=== PATIENT | female | born 1980 | race Hispanic/Latino ===

== ENCOUNTER 2018-03-16 13:33 | Emergency (ER) | payer BC, OTHER ==
[2018-03-16] MEDS ORDERED: ACETAMINOPHEN-CODEINE 300/30MG TAB ONE (14:37)
[2018-03-16] MEDS ORDERED: KETOROLAC TROMETHAMINE 30MG/ML ONE (14:37)
== END 2018-03-16 15:23 | disposition home or self-care (01) ==
LOC: EDH 13:33
DX: S83.8X2A Sprain of other specified parts of left knee, initial encounter (principal); Z98.51 Tubal ligation status; Z90.49 Acquired absence of other specified parts of digestive tract; Z98.890 Other specified postprocedural states; X58.XXXA Exposure to other specified factors, initial encounter; Y93.89 Activity, other specified; Y92.89 Other specified places as the place of occurrence of the external cause; Y99.8 Other external cause status
CPT/HCPCS: 73562; 96372; 99284; J1885

== ENCOUNTER 2025-04-03 22:44 | Emergency (ER) | payer BC ==
[~2025-04-03] VITALS: Ht 162.6 cm; Wt 97.5 kg
[2025-04-03] MEDS: LIDOCAINE 1%-EPI 1:100,000 20 ML VIAL IJ ONE (23:42)
[2025-04-04 00:04] VITALS: BP 138/87; PULSE 78; RESP 19; TEMP 98.3; O2SAT 96
[2025-04-04] MEDS ORDERED: CEPH500B PO (00:08)
--- NOTE | 2025-04-04 00:10 | ERN ---
General Chief Complaint: Cellulitis Stated Complaint: REDNESS, SWELLING LEFT 3RD FINGER Time Seen by MD: 22:50 Source: patient History of Present Illness Initial Comments 44-year-old female who removed all of her false nails several days ago and then started to notice on her left middle finger ulnar side increased redness and swelling and pain. She comes to the hospital with concerns of an infection. No systemic signs of infection such as fever or chills. Allergies: Coded Allergies: No Known Allergies (Unverified Allergy, Unknown, 04/03/25) Past Medical History Past Medical History: No Pertinent History Past Surgical History: Cholecystectomy, BTL ROS Dictation Review of systems is negative except for her left middle finger pain. Physical Exam Extremities Comment Left middle finger ulnar surface has a paronychia. It is exquisitely tender red and tense. MDM Plain films of the left hand were negative for foreign objects. I injected the hand and scraped out the nail bed folds along the ulnar surface. Removing what appeared to be a remnant of a false nail. With the bleeding and removal of that material the redness of the paronychia faded to a more normal color it became less tense and spontaneously started draining clear fluid. I will discharge the patient with some p.o. antibiotics. ED Course Orders Procedure Category Date Status Time Hand 3+Vws Lt RAD 04/03/25 Taken 23:03 Lidocaine 1%-Epi PHA 04/03/25 Complete 1:100,000 (Lidocaine 23:30 Laceration Tray Set CPOE 04/03/25 Transmitted Up (Er) 23:03 Current Medications Medications (Trade) Dose Ordered Sig/Tony Route PRN Reason Start Time Stop Time Status Last Admin Dose Admin Lidocaine/ Epinephrine (Lidocaine 1%-Epi 1:100,000) 20 ml ONCE ONCE IJ 04/03/25 23:30 04/03/25 23:31 DC 04/03/25 23:42 Vital Signs Date Time Temp Pulse Resp B/P (MAP) Pulse Ox O2 Delivery O2 Flow Rate FiO2 04/03/25 22:49 80 16 149/98 97 Room Air* 0 21 04/03/25 22:45 98.4 77 18 151/97 98 Room Air Procedure Dictation I injected the digital nerves of the middle finger on the left hand with lidocaine. Then I scraped the nail fold medial and laterally on the medial surface and noted a old piece of false nail. Then was able to see some clear fluid draining from the nail bed. I did not find any purulent drainage. DX & DISP Disposition: Discharge Departure Impression: Primary Impression: Paronychia of finger of left hand Condition: Stable Scripts Cephalexin Monohydrate (Keflex) 500 Mg Cap 500 MG PO QID for 7 Days, #28 CAP Prov: FACUNDO LOUIE MD 04/04/25 Additional Instructions: Please return if the redness and swelling does not continue to decrease or if you start to see purulent drainage or if you start to see red streaks going up her left forearm. You can follow-up with your primary care physician to be sure the wound has healed totally. Your nail bed should regrow normally. Avoid false nails for at least two weeks. Referrals: MYKEL HSAFER MD (PCP) FACUNDO LOUIE MD Apr 04, 2025 00:10
--- NOTE | 2025-04-04 08:45 | HMCIMG ---
Exam Type: HAND 3+VWS LT Clinical Information: paronychia left middle finger Comparison: None Findings: The bone examination is unremarkable. No fractures or dislocations are seen. No radiopaque foreign bodies are noted. Soft tissues are preserved. IMPRESSION: Normal examination.
== END 2025-04-04 00:22 | disposition home or self-care (01) ==
LOC: EDH 22:44
DX: L03.012 Cellulitis of left finger (principal); Z90.49 Acquired absence of other specified parts of digestive tract; Z98.51 Tubal ligation status
CPT/HCPCS: 99283; 10060; 73130; J3490